=== PATIENT | female | born 1985 | race Asian ===

== ENCOUNTER 2018-07-28 13:13 | Emergency (ER) | payer BC ==
[~2018-07-28] VITALS: Ht 157.5 cm; Wt 58.1 kg
[2018-07-28 14:11] VITALS: Ht 157.5 cm; Wt 58.1 kg
[2018-07-28 15:56] LABS: BASOPHIL % 1.1 % (0-2); PLATELET COUNT 313 x10^3mcL (130-400); RED CELL DISTRIBUTION WIDTH 13.6 % (11.5-14.5)
[2018-07-28 16:03] LABS: CALCIUM 8.7 mg/dL (8.5-10.1); CARBON DIOXIDE 28.4 mmol/L (21-32); CHLORIDE SERUM 105 mmol/L (98-107); CREATININE SERUM 0.6 mg/dL (0.6-1.0); GFR1 > 60 mL/min; GLUCOSE SERUM 83 mg/dL (74-106); POTASSIUM SERUM 3.8 mmol/L (3.5-5.1); SODIUM SERUM 137 mmol/L (136-145)
[2018-07-28 16:07] LABS: ALBUMIN 3.9 g/dL (3.4-5.0); ALKALINE PHOSPHATASE 79 U/L (46-116); ALT/SGPT 37 U/L (14-59); AST/SGOT 22 U/L (15-37); BILIRUBIN TOTAL 0.38 mg/dL (0.20-1.00); LIPASE 134 IU/L (73-393); TOTAL PROTEIN, SERUM 7.6 g/dL (6.4-8.2)
[2018-07-28 16:18] LABS: microscopic required? NO
[2018-07-28 16:33] LABS: UA SPECIFIC GRAVITY 1.025 (1.005-1.035); urine erythrocyte NEGATIVE (NEGATIVE)
[2018-07-28 17:34] VITALS: BP 115/77
== END 2018-07-28 17:34 | disposition home or self-care (01) ==
LOC: ED 13:13
PROVIDERS: Emergency Medicine
DX: K29.70 Gastritis, unspecified, without bleeding (principal)
CPT/HCPCS: 36415